=== PATIENT | female | born 1980 | race Two or more races ===

== ENCOUNTER → 2020-03-08 10:17 | Outpatient (BNVA) | payer SELFPAY | DX: Z76.89 Persons encountering health services in other specified circumstances (principal) ==

== ENCOUNTER 2020-03-25 08:51 | Outpatient (REF) | payer SELFPAY ==
[2020-03-25 10:02] LABS: COVID-19 Test Positive (Negative)
== END 2020-03-25 08:52 | disposition home or self-care (01) ==
LOC: HO.LAB 08:51
PROVIDERS: Visit Provider Internal Medicine
DX: Z20.828 Contact with and (suspected) exposure to other viral communicable diseases (principal)
CPT/HCPCS: 87635